=== PATIENT | female | born 1985 | race Caucasian/White ===

== ENCOUNTER 2016-12-01 15:32 | Emergency (ER) | payer MEDICAID ==
[~2016-12-01] VITALS: Ht 170.2 cm; Wt 124.5 kg
[~2016-12-01 15:32] MED LIST: CEPH-443 PO; NEOM28.33 TOP
[2016-12-01 15:36] VITALS: Ht 170.2 cm; Wt 124.5 kg
--- NOTE | 2016-12-01 19:27 | ERD ---
ER Documentation Chief Complaint Date/Time DATE: 12/01/16 TIME: 19:24 Chief Complaint 17 WKS . VAG BLEEDING, BACK AND PELVIC PAIN HPI 31-year-old female presents here in emergency department for complaints of vaginal bleeding that started today. Patient described the bleeding is spotting , patient is approximately 17 weeks . 3 para 2 0. Last menstruation 07/29/2016. Patient is complaining of pelvic pain, back pain cramping pain 4/10 scale, accompanying the vaginal bleeding. ROS All systems reviewed and are negative except as per history of present illness. Medications Home Meds Active Scripts Cephalexin* (Keflex*) 500 Mg Capsule, 500 MG PO QID for 7 Days, CAP Prov:LENARD WHITE PA-C 08/08/15 Neomy Sulf/Bacitrac Zn/Poly* (Neosporin* Topical Oint) 15 Gm Oint..gm., 1 APPLIC TOP BID, #1 TUB Prov:LENARD WHITE PA-C 08/08/15 Allergies Allergies: Coded Allergies: No Known Allergies (Verified Allergy, Unknown, 04/23/15) PMhx/Soc Medical and Surgical Hx: pt denies Medical Hx, pt denies Surgical Hx History of Surgery: No Hx Neurological Disorder: No Hx Respiratory Disorders: No Hx Cardiac Disorders: No Hx Miscellaneous Medical Probl: No Hx Alcohol Use: No Hx Substance Use: No Hx Tobacco Use: No Smoking Status: Never smoker FmHx Family History: No coronary disease, No diabetes, No other Physical Exam Vitals Vital Signs Date Time Temp Pulse Resp B/P Pulse Ox O2 Delivery O2 Flow Rate FiO2 12/01/16 15:36 99.3 100 18 137/75 97 Physical Exam GENERAL: The patient is well developed and appropriate for usual state of health, in no apparent distress. CHEST: Clear to auscultation bilaterally. There are no rales, wheezes or rhonchi. HEART: Regular rate and rhythm. No murmurs, clicks, rubs or gallops. No S3 or S4. ABDOMEN: Soft, nontender and nondistended. Good bowel sounds. No rebound or guarding. No gross peritonitis. No gross organomegaly or masses. No Palumbo sign or McBurney point tenderness. BACK: No midline or flank tenderness. EXTREMITIES: Equal pulses bilaterally. There is no peripheral clubbing, cyanosis or edema. No focal swelling or erythema. Full range of motion. Grossly neurovascularly intact. NEURO: Alert and oriented. Cranial nerves 2-12 intact. Motor strength in all 4 extremities with 5/5 strength. Sensation grossly intact. Normal speech and gait. SKIN: There is no apparent rash or petechia. The skin is warm and dry. HEMATOLOGIC AND LYMPHATIC: There is no evidence of excessive bruising or lymphedema. No gross cervical, axillary, or inguinal lymphadenopathy. Result Diagram: 12/01/16 1950 Results 24 hrs Laboratory Tests Test 12/01/16 19:50 White Blood Count 11.010^3/ul Red Blood Count 3.8410^6/ul Hemoglobin 11.2g/dl Hematocrit 33.4% Mean Corpuscular Volume 87.0fl Mean Corpuscular Hemoglobin 29.2pg Mean Corpuscular Hemoglobin Concent 33.5g/dl Red Cell Distribution Width 15.9% Platelet Count 82332^3/UL Mean Platelet Volume 10.6fl Neutrophils % 62.9% Lymphocytes % 29.2% Monocytes % 6.5% Eosinophils % 0.6% Basophils % 0.5% Nucleated Red Blood Cells % 0.0/100WBC Neutrophils # (Manual) 6.910^3/ul Lymphocytes # 3.210^3/ul Monocytes # 0.710^3/ul Eosinophils # 0.110^3/ul Basophils # 0.110^3/ul Nucleated Red Blood Cells # 0.010^3/ul Urine Color YELLOW Urine Clarity CLEAR Urine pH 5.0 Urine Specific Glide 1.019 Urine Ketones TRACEmg/dL Urine Nitrite NEGATIVEmg/dL Urine Bilirubin NEGATIVEmg/dL Urine Urobilinogen NEGATIVEmg/dL Urine Leukocyte Esterase NEGATIVELeu/ul Urine Microscopic RBC 5/HPF Urine Microscopic WBC 4/HPF Urine Bacteria FEW/HPF Urine Mucus FEW/HPF Urine Hemoglobin 3+mg/dL Urine Glucose NEGATIVEmg/dL Urine Total Protein 2+mg/dl Beta HCG, Quantitative 03433.0mIU/ml PROCEDURE: Obstetrical ultrasound greater than 14 weeks CLINICAL INDICATION: Vaginal bleeding. TECHNIQUE: Real time sonographic imaging of the gravid uterus is performed transabdominally and multiple static walsh scale and Doppler images are submitted for review as are measurements. The images are reviewed on the PACS. COMPARISON: No relevant exams are available FINDINGS: The cervical os is closed with a normal cervical length of 3.6 cm. There is a single living intrauterine gestation in variable/breech presentation. The heart beat is estimated at 159 bpm. The measurements are as follows: BPD: 3.71 cm HC: 13.84 cm AC: 12.04 cm FL: 2.29 cm Estimated gestational age is 17 weeks 2 days. The estimated date of delivery is 05/09/2017. The estimated weight is 189 grams. Placenta is anterior and grade 0. There is no evidence of placenta previa or abruption. The amniotic fluid is normal, the maximum vertical pocket estimated at 5 cm. RPTAT:HJJR IMPRESSION: 1. Single viable intrauterine gestation estimated at 17 weeks 2 days with the estimated date of delivery 05/09/2017. 2. Anterior grade 0 placenta without evidence of abruption. Physician Leidy Date Time Electronically viewed and signed by Physician Leidy on 12/01/2016 21:04 JR/ CC: FLACO HALL BATCH UNLOADER Procedures/MDM Medical Decision Making: Patients vaginal bleeding is most likely consistent of possible threatened . Patient does not show any evidence of hypovolemic shock. Patients hemoglobin and hematocrit is stable. There is low suspicion for ectopic . JYOTI results show viable 17 wk without placenta previa or abruption. BetaHCG Quantitative is appropriate for .The patient is Rh+, does not need RhoGAM this time. There is no signs of symptoms of dehydration. There is low suspicion for sepsis. Patient appears well and is hemodynamically stable. Disposition: Home. Condition: Stable Prescription: Tylenol Instructions: Patient is advised to do bed rest, avoid heavy lifting, and avoid having sex until cleared by OB doctor. Patient is advised to follow up with OB doctor or here at the ER in 48 hours for reevaluation of symptoms, repeat beta HCG quantitative and ultrasound. Patient is advised that is symptoms are worst, severe bleeding, dizziness, severe abdominal pain, fever, worst signs and symptoms to return to the emergency department immediately. Departure Diagnosis: Primary Impression: Vaginal bleeding in patient at less than 20 weeks gestation Additional Impression: Intrauterine Condition: Stable Patient Instructions: Bleeding During Early Additional Instructions: Patient is advised to do bed rest, avoid heavy lifting, and avoid having sex until cleared by OB doctor. Patient is advised to follow up with OB doctor or here at the ER in 48 hours for reevaluation of symptoms, repeat beta HCG quantitative and ultrasound. Patient is advised that is symptoms are worst, severe bleeding, dizziness, severe abdominal pain, fever, worst signs and symptoms to return to the emergency department immediately. FLACO HALL NP Dec 01, 2016 19:27
[2016-12-01 20:02] LABS: BASOPHIL # 0.1 10^3/ul (0.0-0.1); BASOPHILS % 0.5 % (0.0-2.0); EOSINOPHILS # 0.1 10^3/ul (0.0-0.5); EOSINOPHILS % 0.6 % (0.0-7.0); HEMATOCRIT 33.4 % (37.0-47.0); HEMOGLOBIN 11.2 g/dl (12.0-16.0); LYMPHOCYTES # 3.2 10^3/ul (0.8-2.9); LYMPHOCYTES % 29.2 % (15.0-51.0); MEAN CORPUSCULAR HEMOGLOBIN 29.2 pg (29.0-33.0); MEAN CORPUSCULAR HGB CONC 33.5 g/dl (32.0-37.0); MEAN PLATELET VOLUME 10.6 fl (7.4-10.4); MONOCYTE # 0.7 10^3/ul (0.3-0.9); MONOCYTES % 6.5 % (0.0-11.0); NEUTROPHILS % 62.9 % (39.0-77.0); PLATELET COUNT 295 10^3/UL (140-415); RED BLOOD COUNT 3.84 10^6/ul (4.20-5.40); RED CELL DISTRIBUTION WIDTH 15.9 % (11.5-14.5)
[2016-12-01 20:20] LABS: ADD UMIC YES; UR ASCORBIC ACID 20 mg/dL (NEGATIVE); UR BACTERIA FEW /HPF (NONE SEEN); UR BILIRUBIN (Dip) NEGATIVE (NEGATIVE); UR BLOOD (Dip) 3+ mg/dL (NEGATIVE); UR CLARITY CLEAR (CLEAR); UR COLOR YELLOW (YELLOW); UR GLUCOSE (Dip) NEGATIVE (NEGATIVE); UR KETONES (Dip) TRACE mg/dL (NEGATIVE); UR LEUKOCYTE ESTERASE (Dip) NEGATIVE Leu/ul (NEGATIVE); UR MUCUS FEW /HPF (NONE SEEN); UR NITRITE (Dip) NEGATIVE (NEGATIVE); UR RBC 5 /HPF (0-5); UR SPECIFIC GRAVITY (Dip) 1.019 (1.003-1.030); UR TOTAL PROTEIN (Dip) 2+ mg/dl (NEGATIVE); UR UROBILINOGEN (Dip) NEGATIVE (NEGATIVE)
--- NOTE | 2016-12-01 21:04 | RADRPT ---
PROCEDURE: Obstetrical ultrasound greater than 14 weeks CLINICAL INDICATION: Vaginal bleeding. TECHNIQUE: Real time sonographic imaging of the gravid uterus is performed transabdominally and mu ltiple static walsh scale and Doppler images are submitted for review as are measurements. The image s are reviewed on the PACS. COMPARISON: No relevant exams are available FINDINGS: The cervical os is closed with a normal cervical length of 3.6 cm. There is a single living intrauterine gestation in variable/breech presentation. The heart b eat is estimated at 159 bpm. The measurements are as follows: BPD:3.71 cm HC:13.84 cm AC:12.04 cm FL:2.29 cm Estimated gestational age is 17 weeks 2 days. The estimated date of delivery is 05/09/2017. The estimated weight is 189 grams. Placenta is anterior and grade 0. There is no evidence of placenta previa or abruption. The amniotic fluid is normal, the maximum vertical pocket estimated at 5 cm. RPTAT:HJJR IMPRESSION: 1. Single viable intrauterine gestation estimated at 17 weeks 2 days with the estimated date of deli very 05/09/2017. 2. Anterior grade 0 placenta without evidence of abruption. Physician Leidy Date Time Electronically viewed and signed by Physician Leidy on 12/01/2016 21:04 /
[2016-12-01] MEDS ORDERED: ACET500C5 PO (21:17)
[2016-12-01 21:27] VITALS: BP 109/58; PULSE 71; RESP 19
== END 2016-12-01 21:26 | disposition home or self-care (01) ==
LOC: FTE 15:32
DX: O20.9 Hemorrhage in early pregnancy, unspecified (principal); R10.2 Pelvic and perineal pain; Z3A.17 17 weeks gestation of pregnancy
CPT/HCPCS: 36415; 76805; 81001; 84702; 85025; 86900; 86901; Z7502

== ENCOUNTER 2017-04-21 14:19 | Inpatient (IN) | END 2017-04-24 15:35 | disposition home or self-care (01) | DRG 765 ==